=== PATIENT | male | born 1955 | race Caucasian/White ===

== ENCOUNTER 2018-06-01 09:49 | Emergency (ER) | payer OTHER ==
[~2018-06-01] VITALS: Ht 180.3 cm; Wt 113.4 kg
[2018-06-01] MEDS ORDERED: LABETALOL HCL300 MG (10:21)
[2018-06-01] MEDS ORDERED: NORVASC5 MG (10:21)
[2018-06-01] MEDS ORDERED: MICARDIS HCT 81 EAC1 (10:21)
[2018-06-01] MEDS ORDERED: ALDACTONE25 MG (10:21)
[2018-06-01] MEDS ORDERED: CATAPRES0.2 MG (10:21)
[2018-06-01] MEDS ORDERED: KOMBIGLYZE XR1 EAC1 (10:22)
[2018-06-01] MEDS ORDERED: GLIMEPIRIDE1 MG (10:22)
[2018-06-01] MEDS ORDERED: ZYLOPRIM300 MG (10:23)
[2018-06-01] MEDS ORDERED: TAMS0.4C (10:24)
[2018-06-01] MEDS ORDERED: LOVAZA1 GM (10:24)
[2018-06-01] MEDS ORDERED: COLCHICINE0.6 M1 (10:26)
== END 2018-06-01 14:00 | disposition home or self-care (01) ==
LOC: ER 09:49
DX: R10.11 Right upper quadrant pain (principal)

== ENCOUNTER 2020-01-23 13:59 | Inpatient (IN) | payer OTHER ==
[~2020-01-23] VITALS: Ht 177.8 cm; Wt 107.0 kg
[~2020-01-23 13:59] MED LIST: ALDACTONE25 MG; CATAPRES0.2 MG; COLCHICINE0.6 M1; GLIMEPIRIDE1 MG; KOMBIGLYZE XR1 EAC1; LOVAZA1 GM; MICARDIS HCT 81 EAC1; NORVASC5 MG; TAMS0.4C; TRANDATE300 MG PO; ZYLOPRIM300 MG
== END 2020-01-31 16:02 | disposition home or self-care (01) | DRG 728 ==
LOC: ER 13:59 → MEDI 01-24 09:33 → SEC-K 01-24 09:33 → MEDI 01-24 10:56 → MEDJ 01-26 14:38
PROVIDERS: ADMIT Internal Medicine
PROC: BW21ZZZ Computerized Tomography (CT Scan) of Abdomen and Pelvis (ICD-10-PCS; principal; 2020-01-24)
PROC: BT04ZZZ Plain Radiography of Kidneys, Ureters and Bladder (ICD-10-PCS; 2020-01-24)
PROC: 0T9B70Z Drainage of Bladder with Drainage Device, Via Natural or Artificial Opening (ICD-10-PCS; 2020-01-26)
DX: N41.0 Acute prostatitis (principal); N13.8 Other obstructive and reflux uropathy; N39.0 Urinary tract infection, site not specified; N40.1 Benign prostatic hyperplasia with lower urinary tract symptoms; B96.29 Other Escherichia coli [E. coli] as the cause of diseases classified elsewhere; E11.65 Type 2 diabetes mellitus with hyperglycemia; I10 Essential (primary) hypertension; K76.0 Fatty (change of) liver, not elsewhere classified; N28.1 Cyst of kidney, acquired; Z79.84 Long term (current) use of oral hypoglycemic drugs